=== PATIENT | female | born 1965 | race Hispanic/Latino ===

== ENCOUNTER → 2025-01-21 | Outpatient (REF) | payer OTHER ==
[~2025-01-21] MED LIST: ASPIRIN81 MG PO; LEVOTHYROXINE50 MCG PO; LIPITOR10 MG PO; METOPROLOL SUCC25 MG PO; MULTI-VITAMIN1 EACH PO; PANTOPRAZOLE SO40 MG PO; SERTRALINE HCL100 MG PO; TIZANIDINE HCL4 M1 PO; TRAZODONE HCL50 MG PO; VIT D PO; ZETIA10 MG PO
== END ==
LOC: DX 15:45
PROVIDERS: ATTEND Internal Medicine Gastroenterology
DX: Z12.11 Encounter for screening for malignant neoplasm of colon (principal); R10.9 Unspecified abdominal pain
CPT/HCPCS: 74280

== ENCOUNTER → 2025-03-31 | Outpatient (REF) | payer OTHER | LOC: DX 10:29 | PROVIDERS: ATTEND Nurse Practitioner Family | DX: R10.11 Right upper quadrant pain (principal); K82.4 Cholesterolosis of gallbladder | CPT/HCPCS: 74246; 74250 ==